=== PATIENT | male | born 1955 | race Caucasian/White ===

== ENCOUNTER 2016-08-27 17:56 | Emergency (ER) | payer OTHER ==
[~2016-08-27] VITALS: Ht 188 cm; Wt 98.3 kg
[2016-08-27] MEDS ORDERED: SODIUM CHLORIDE 0.9% 1,000ML IVBOLUS ONE (19:00)
[2016-08-27] MEDS ORDERED: SODIUM CHLORIDE FLUSH 10ML SYR IVF ONE (19:00)
[2016-08-27] MEDS ORDERED: ONDANSETRON 2MG/ML, 2ML IVPush ONE (19:00)
[2016-08-27] MEDS ORDERED: MORPHINE SULFATE 4 MG/ML, 1ML IVPush PRN (19:00)
[2016-08-27] MEDS ORDERED: MORPHINE SULFATE 4 MG/ML, 1ML ONE (19:13)
[2016-08-27] MEDS ORDERED: ONDANSETRON 2MG/ML, 2ML ONE (19:13)
[2016-08-27 19:29] LABS: ASPARTATE AMINO TRANSFERASE 28 U/L (15-37); BLOOD UREA NITROGEN 22 mg/dL (7-18)
[2016-08-27] MEDS ORDERED: CIPROFLOXACIN 500 MG TABLET ONE (20:45)
[2016-08-27] MEDS ORDERED: OXYcodone/APAP 5/325MG TABLET ONE (20:45)
[2016-08-27] MEDS ORDERED: metroNIDAZOLE 500 MG TABLET ONE (20:45)
[2016-08-27] MEDS ORDERED: OXYcodone/APAP 5/325MG TABLET PO ONE (21:00)
[2016-08-27] MEDS ORDERED: CIPROFLOXACIN 500 MG TABLET PO ONE (21:00)
[2016-08-27] MEDS ORDERED: metroNIDAZOLE 500 MG TABLET PO ONE (21:00)
[2016-08-27] MEDS ORDERED: OMNIPAQUE 350 MG/ML, 100ML BOTTLE ONE (21:10)
[2016-08-27 21:16] VITALS: BP 134/76
== END 2016-08-27 21:33 | disposition home or self-care (01) ==
LOC: ED 21:27
DX: K57.32 Diverticulitis of large intestine without perforation or abscess without bleeding (principal); R10.32 Left lower quadrant pain; Z85.46 Personal history of malignant neoplasm of prostate
CPT/HCPCS: 36415; 74177; 80053; 81003; 83690; 85025; 96361; 96374; 96375; 99285; J2405; J7030; Q9967